=== PATIENT | female | born 1940 | race Caucasian/White ===

== ENCOUNTER 2018-03-11 17:52 | Inpatient (IN) ==
[2018-03-11] MEDS ORDERED: ALBUTEROL NEB SOLN 5 MG/ML 20 ML/BOTTLE CONT NEB STA (19:14)
[2018-03-11] MEDS ORDERED: MEROPENEM 1,000 MG in SODIUM CHLORIDE 0.9% 100 ML IV STA ×2 (19:14→19:43)
[2018-03-11] MEDS ORDERED: methylPREDNISolone SOD SUC 125 MG/2 ML VIAL IV STA (19:14)
[2018-03-11] MEDS ORDERED: SODIUM CHLORIDE 0.9% 500 ML IV STA (19:14)
[2018-03-11] MEDS ORDERED: ONDANSETRON 4 MG/2 ML VIAL IV STA (19:17)
[2018-03-11 19:49] LABS: Basophils % 1.6 % (0.0-0.8); Hematocrit 20.2 VOL% (35.7-47.0); Hemoglobin 6.7 GM/DL (12.0-16.0); Immature Granulocytes % 1.6 %; Immature Granulocytes Absolute 0.01 #; Lymphocytes # 0.4 10*3/uL (1.4-4.0); Lymphocytes % 65.6 % (21.3-54.2); Mean Corpuscular HGB Conc 33.2 GM/DL (32-36); Mean Corpuscular Hemoglobin 34 PG (27-34); Mean Corpuscular Volume 103.6 FL (87-102); Mean Platelet Volume 11.9 FL (9.6-12.0); Monocytes # 0.1 10*3/uL (0.11-0.8); Monocytes % 15.6 % (1.7-12.7); Neutrophils # 0.1 10*3/uL (1.4-7.4); Neutrophils % 15.6 % (38.7-73.9); Red Blood Count 1.95 MC/CUMM (3.8-5.5); Red Cell Distribution Width 14.4 % (9.3-17.3)
[2018-03-11 19:52] LABS: Platelet Count 29 T/CUMM (130-400); White Blood Count 0.6 T/CUMM (4-12)
[2018-03-11 19:57] LABS: PT Patient Result 10.2 SECS; Partial Thromboplastin Time 26.4 SECS (0-40)
[2018-03-11 20:12] LABS: Alanine Aminotransferase 12 U/L (13-56); Alkaline Phosphatase 101 U/L (45-117); Aspartate Amino Transferase 11 U/L (0-37); Blood Urea Nitrogen 16 MG/DL (7-18); Calcium 9.1 MG/DL (8.5-10.1); Glucose 113 MG/DL (74-106); Osmolality,Calculated 267.4 MOS/KG (273-304); Potassium 4.2 MMOL/L (3.5-5.1); Sodium 133 MMOL/L (136-145); Total Protein 6.1 G/DL (6.4-8.3); Troponin I < 0.015 NG/ML (0.00-0.045)
[2018-03-11 20:15] LABS: Anisocytosis Slight; Eosinophils 1 % (0-10); Hypochromasia 1+; Lymphocytes 72 % (20-55); Segmented Neutrophils 13 % (50-85); Total Cells Counted 100
[2018-03-11 20:16] LABS: Platelet Estimate Decreased; Polychromasia Few; Reactive Lymphocytes Few; Schistocytes Few
[2018-03-11] MEDS ORDERED: traMADol 50 MG TABLET PO STA (20:28)
[2018-03-11 20:30] LABS: Apearance,Urine CLEAR (Clear); Bilirubin,Urine Negative (Negative); Blood, Urine Negative (Negative); Glucose,Urine (UA) Negative (Negative); Ketones,Urine Negative (Negative); Nitrite,Urine Negative (Negative); Protein,Urine >=500 MG/DL; RBC,Urine 1 /HPF (0-4); Squamous Epithelial Cell,Urine Occasional /HPF (0-10); Urine Color Yellow (Yellow); Urine Specific Gravity 1.012 (1.001-1.035); Urine Urobilinogen < 2.0 EU/DL (0.2-1.0); WBC,Urine 2 /HPF (0-6)
[2018-03-11] MEDS ORDERED: ONDANSETRON 4 MG/2 ML VIAL IV PRN (21:17)
[2018-03-11] MEDS ORDERED: ACETAMINOPHEN 325 MG TABLET PO PRN (21:17)
[2018-03-11] MEDS ORDERED: SODIUM CHLORIDE 0.9% 1,000 ML IV PRN (21:17)
[2018-03-11] MEDS ORDERED: SODIUM CHLORIDE 0.9% 1,000 ML IV ONE (21:17)
[2018-03-11] MEDS ORDERED: PROMETHAZINE 25 MG/1 ML VIAL IM PRN (21:17)
[2018-03-11] MEDS ORDERED: diphenhydrAMINE CAP 25 MG CAPSULE PO PRN (21:17)
[2018-03-11] MEDS ORDERED: NICOTINE 21 MG/24 HR PATCH TRANSDERM PRN (21:17)
[2018-03-11] MEDS ORDERED: traZODone 50 MG TABLET PO PRN (21:17)
[2018-03-11] MEDS ORDERED: MORPHINE 4 MG/1 ML VIAL IV PRN (21:17)
[2018-03-11] MEDS: SODIUM CHLORIDE 0.9% 1,000 ML IV SCH (23:40)
[2018-03-11] MEDS: VANCOMYCIN INJ 1,000 MG in SODIUM CHLORIDE 0.9% 250 ML IV SCH (23:41)
[2018-03-12] MEDS: PIPERACILLIN/TAZOBACTAM 3,375 MG in SODIUM CHLORIDE 0.9% 100 ML IV SCH ×2 (01:13→11:41)
[2018-03-12] MEDS: methylPREDNISolone SOD SUC 125 MG/2 ML VIAL IV SCH ×3 (03:25→20:36)
[2018-03-12 04:32] LABS: Calcium 8.3 MG/DL (8.5-10.1); Potassium 4.2 MMOL/L (3.5-5.1)
[2018-03-12 07:13] LABS: Hematocrit 18.4 VOL% (35.7-47.0); Lymphocytes # 0.4 10*3/uL (1.4-4.0); Lymphocytes % 79.6 % (21.3-54.2); Mean Corpuscular HGB Conc 33.7 GM/DL (32-36); Mean Corpuscular Hemoglobin 35 PG (27-34); Mean Platelet Volume 14.6 FL (9.6-12.0); Monocytes % 3.7 % (1.7-12.7); Neutrophils # 0.1 10*3/uL (1.4-7.4); Neutrophils % 16.7 % (38.7-73.9); Red Blood Count 1.77 MC/CUMM (3.8-5.5); Red Cell Distribution Width 14.2 % (9.3-17.3)
[2018-03-12 07:19] LABS: Hemoglobin 6.2 GM/DL (12.0-16.0); Platelet Count 24 T/CUMM (130-400); White Blood Count 0.5 T/CUMM (4-12)
[2018-03-12 07:33] LABS: Lymphocytes 80 % (20-55); Segmented Neutrophils 20 % (50-85); Total Cells Counted 100
[2018-03-12 07:36] LABS: Macrocytosis Slight; Ovalocytes Few; Platelet Estimate Decreased
[2018-03-12] MEDS ORDERED: FLUTICASONE INH SCH (09:00)
[2018-03-12] MEDS ORDERED: VILANTEROL INH SCH (09:00)
[2018-03-12] MEDS ORDERED: TIOTROPIUM BROMIDE INH SCH (09:00)
[2018-03-12] MEDS: POTASSIUM CHLORIDE 20 MEQ TABLET PO SCH ×2 (09:57→20:36)
[2018-03-12] MEDS: PANTOPRAZOLE 40 MG TABLET PO SCH (09:57)
[2018-03-12] MEDS: amLODIPine 10 MG TABLET PO SCH (09:57)
[2018-03-12] MEDS: ALPRAZolam 0.5 MG TABLET PO PRN ×2 (10:05→20:42)
[2018-03-12] MEDS ORDERED: SODIUM CHLORIDE 0.9% 1,000 ML IV PRN (11:55)
[2018-03-12] MEDS: VANCOMYCIN INJ 1,000 MG in SODIUM CHLORIDE 0.9% 250 ML IV SCH ×2 (12:08→22:34)
[2018-03-12] MEDS: MEROPENEM 1,000 MG in SODIUM CHLORIDE 0.9% 100 ML IV SCH ×2 (12:17→20:39)
[2018-03-12] MEDS: FILGRASTIM-SNDZ 300 MCG/0.5 ML SYRINGE SUBCUT SCH (12:17)
[2018-03-13 03:15] LABS: Basophils % 0.8 % (0.0-0.8); Hemoglobin 9.4 GM/DL (12.0-16.0); Immature Granulocytes % 11.5 %; Immature Granulocytes Absolute 0.15 #; Lymphocytes # 0.6 10*3/uL (1.4-4.0); Lymphocytes % 44.6 % (21.3-54.2); Mean Corpuscular HGB Conc 33.6 GM/DL (32-36); Mean Corpuscular Hemoglobin 31 PG (27-34); Mean Corpuscular Volume 93.6 FL (87-102); Mean Platelet Volume 11.6 FL (9.6-12.0); Monocytes # 0.3 10*3/uL (0.11-0.8); Monocytes % 26.2 % (1.7-12.7); Neutrophils # 0.2 10*3/uL (1.4-7.4); Neutrophils % 16.9 % (38.7-73.9); Red Blood Count 2.99 MC/CUMM (3.8-5.5); Red Cell Distribution Width 16.1 % (9.3-17.3)
[2018-03-13 03:21] LABS: Platelet Count 63 T/CUMM (130-400)
[2018-03-13 03:22] LABS: White Blood Count 1.3 T/CUMM (4-12)
[2018-03-13 03:31] LABS: Albumin 2.6 G/DL (3.4-5.0); Bilirubin,Total 0.4 MG/DL (0.2-1.0); Calcium 8.6 MG/DL (8.5-10.1); Osmolality,Calculated 276.8 MOS/KG (273-304); Total Protein 5.7 G/DL (6.4-8.3)
[2018-03-13] MEDS: methylPREDNISolone SOD SUC 125 MG/2 ML VIAL IV SCH ×3 (03:31→19:38)
[2018-03-13] MEDS: MEROPENEM 1,000 MG in SODIUM CHLORIDE 0.9% 100 ML IV SCH ×3 (03:33→21:38)
[2018-03-13 03:51] LABS: Band Neutrophils 4 % (0-10); Lymphocytes 54 % (20-55); Segmented Neutrophils 26 % (50-85)
[2018-03-13 03:52] LABS: Ovalocytes 1+; Platelet Estimate Decreased; Polychromasia Few; Reactive Lymphocytes Few; Total Cells Counted 100
[2018-03-13] MEDS ORDERED: ALBUTEROL/IPRATROPIUM 3 ML NEB RESP TX PRN (08:46)
[2018-03-13] MEDS: amLODIPine 10 MG TABLET PO SCH (09:56)
[2018-03-13] MEDS: PANTOPRAZOLE 40 MG TABLET PO SCH (09:56)
[2018-03-13] MEDS: POTASSIUM CHLORIDE 20 MEQ TABLET PO SCH ×2 (09:56→20:45)
[2018-03-13] MEDS: FILGRASTIM-SNDZ 300 MCG/0.5 ML SYRINGE SUBCUT SCH (09:56)
[2018-03-13] MEDS: ALPRAZolam 0.5 MG TABLET PO PRN ×2 (11:20→20:44)
[2018-03-13] MEDS: VANCOMYCIN INJ 1,000 MG in SODIUM CHLORIDE 0.9% 250 ML IV SCH ×2 (12:02→23:10)
[2018-03-13] MEDS: traMADol 50 MG TABLET PO PRN (12:02)
[2018-03-14] MEDS: methylPREDNISolone SOD SUC 125 MG/2 ML VIAL IV SCH ×3 (03:57→20:47)
[2018-03-14] MEDS: MEROPENEM 1,000 MG in SODIUM CHLORIDE 0.9% 100 ML IV SCH ×3 (04:02→20:52)
[2018-03-14] MEDS: traMADol 50 MG TABLET PO PRN ×2 (04:06→20:45)
[2018-03-14 05:06] LABS: Basophils % 0.3 % (0.0-0.8); Hematocrit 29.4 VOL% (35.7-47.0); Hemoglobin 9.9 GM/DL (12.0-16.0); Immature Granulocytes % 1.4 %; Immature Granulocytes Absolute 0.08 #; Lymphocytes # 1.3 10*3/uL (1.4-4.0); Mean Corpuscular HGB Conc 33.7 GM/DL (32-36); Mean Corpuscular Hemoglobin 32 PG (27-34); Mean Corpuscular Volume 95.8 FL (87-102); Monocytes # 1.2 10*3/uL (0.11-0.8); NRBC # 0.02 10*3/uL; Neutrophils # 3.2 10*3/uL (1.4-7.4); Neutrophils % 56.3 % (38.7-73.9); Platelet Count 70 T/CUMM (130-400); Red Blood Count 3.07 MC/CUMM (3.8-5.5); Red Cell Distribution Width 16.9 % (9.3-17.3); White Blood Count 5.7 T/CUMM (4-12)
[2018-03-14 05:25] LABS: Albumin 2.6 G/DL (3.4-5.0); Bilirubin,Total 0.6 MG/DL (0.2-1.0); Osmolality,Calculated 276.8 MOS/KG (273-304); Total Protein 5.7 G/DL (6.4-8.3)
[2018-03-14 05:31] LABS: Band Neutrophils 4 % (0-10); Hypochromasia 1+; Lymphocytes 31 % (20-55); Ovalocytes Slight; Platelet Estimate Decreased; Segmented Neutrophils 46 % (50-85); Total Cells Counted 100
[2018-03-14] MEDS: amLODIPine 10 MG TABLET PO SCH (05:59)
[2018-03-14] MEDS: POTASSIUM CHLORIDE 20 MEQ TABLET PO SCH ×2 (08:55→20:45)
[2018-03-14] MEDS: PANTOPRAZOLE 40 MG TABLET PO SCH (08:55)
[2018-03-14] MEDS: FILGRASTIM-SNDZ 300 MCG/0.5 ML SYRINGE SUBCUT SCH (08:56)
[2018-03-14] MEDS: VANCOMYCIN INJ 1,000 MG in SODIUM CHLORIDE 0.9% 250 ML IV SCH ×2 (10:43→23:38)
[2018-03-14] MEDS: SODIUM CHLORIDE 0.9% 1,000 ML IV SCH (13:42)
[2018-03-15] MEDS: methylPREDNISolone SOD SUC 125 MG/2 ML VIAL IV SCH ×2 (03:52→12:51)
[2018-03-15] MEDS: MEROPENEM 1,000 MG in SODIUM CHLORIDE 0.9% 100 ML IV SCH (03:56)
[2018-03-15 05:16] LABS: Basophils # 0.2 10*3/uL (0.0-0.2); Basophils % 0.8 % (0.0-0.8); Hematocrit 31.6 VOL% (35.7-47.0); Hemoglobin 10.6 GM/DL (12.0-16.0); Immature Granulocytes % 6.5 %; Immature Granulocytes Absolute 1.59 #; Lymphocytes # 3.3 10*3/uL (1.4-4.0); Lymphocytes % 13.4 % (21.3-54.2); Mean Corpuscular HGB Conc 33.5 GM/DL (32-36); Mean Corpuscular Hemoglobin 31 PG (27-34); Mean Corpuscular Volume 93.5 FL (87-102); Mean Platelet Volume 11.6 FL (9.6-12.0); Monocytes # 2.8 10*3/uL (0.11-0.8); Monocytes % 11.4 % (1.7-12.7); NRBC # 0.08 10*3/uL; Neutrophils # 16.7 10*3/uL (1.4-7.4); Neutrophils % 67.9 % (38.7-73.9); Platelet Count 69 T/CUMM (130-400); Red Blood Count 3.38 MC/CUMM (3.8-5.5); Red Cell Distribution Width 16.7 % (9.3-17.3)
[2018-03-15 05:24] LABS: White Blood Count 24.6 T/CUMM (4-12)
[2018-03-15 05:37] LABS: Albumin 2.7 G/DL (3.4-5.0); Bilirubin,Total 0.7 MG/DL (0.2-1.0); Potassium 3.6 MMOL/L (3.5-5.1); Total Protein 5.5 G/DL (6.4-8.3)
[2018-03-15 05:47] LABS: Band Neutrophils 2 % (0-10); Lymphocytes 13 % (20-55); Metamyelocytes 1 %; Platelet Estimate Decreased; Polychromasia Few; Segmented Neutrophils 71 % (50-85); Total Cells Counted 100
[2018-03-15] MEDS: PANTOPRAZOLE 40 MG TABLET PO SCH (09:15)
[2018-03-15] MEDS: amLODIPine 10 MG TABLET PO SCH (09:15)
[2018-03-15] MEDS: POTASSIUM CHLORIDE 20 MEQ TABLET PO SCH (09:15)
[2018-03-15] MEDS: FILGRASTIM-SNDZ 300 MCG/0.5 ML SYRINGE SUBCUT SCH (09:17)
[2018-03-15] MEDS: traMADol 50 MG TABLET PO PRN (09:46)
[2018-03-15 12:47] VITALS: BP 172/76
== END 2018-03-15 12:25 | disposition home health service (06) | DRG 190 ==
LOC: N.ED 17:52 → SUATTDRO 21:17 → N.EDINP 21:17 → N.4E 22:06
PROVIDERS: ADMIT Hospitalist; ATTEND Internal Medicine

== ENCOUNTER 2018-12-21 22:11 | Inpatient (IN) ==
[2018-12-22] MEDS ORDERED: DOCUSATE SODIUM 100 MG CAPSULE PO PRN (01:48)
[2018-12-22] MEDS ORDERED: ONDANSETRON 4 MG/2 ML VIAL IV PRN (01:48)
[2018-12-22] MEDS ORDERED: hydrALAZINE 20 MG/1 ML VIAL IV PRN (02:23)
[2018-12-22] MEDS: methylPREDNISolone SOD SUC 40 MG/1 ML VIAL IV SCH ×3 (02:30→18:18)
[2018-12-22] MEDS: LEVOFLOXACIN INJ 500 MG in PREMIX 1 EACH IV SCH (02:32)
[2018-12-22] MEDS: ACETAMINOPHEN 325 MG TABLET PO PRN ×2 (04:20→16:45)
[2018-12-22 06:28] LABS: Basophils % 0.2 % (0.0-0.8); Hematocrit 25.9 VOL% (35.7-47.0); Hemoglobin 8.4 GM/DL (12.0-16.0); Immature Granulocytes % 0.4 %; Immature Granulocytes Absolute 0.02 #; Lymphocytes # 0.1 10*3/uL (1.4-4.0); Lymphocytes % 2.5 % (21.3-54.2); Mean Corpuscular HGB Conc 32.4 GM/DL (32-36); Mean Corpuscular Volume 99.2 FL (87-102); Mean Platelet Volume 12.8 FL (9.6-12.0); Monocytes % 2.7 % (1.7-12.7); Neutrophils % 94.2 % (38.7-73.9); Platelet Count 92 T/CUMM (130-400); Red Blood Count 2.61 MC/CUMM (3.8-5.5); Red Cell Distribution Width 14.9 % (9.3-17.3); White Blood Count 5.6 T/CUMM (4-12)
[2018-12-22 06:53] LABS: Hypochromasia 1+; Ovalocytes Slight; Platelet Estimate Decreased; Segmented Neutrophils 98 % (50-85); Total Cells Counted 100
[2018-12-22 07:02] LABS: Calcium 8.8 MG/DL (8.5-10.1); Osmolality,Calculated 275.1 MOS/KG (273-304); Risk Ratio 2.67; Thyroid Stimulating Hormone 2.98 uIU/ml (0.358-3.74)
[2018-12-22] MEDS: LEVALBUTEROL 1.25 MG/3 ML NEB RESP TX SCH ×3 (07:13→19:25)
[2018-12-22] MEDS: PANTOPRAZOLE 40 MG TABLET PO SCH (09:08)
[2018-12-22] MEDS ORDERED: traMADol 50 MG TABLET PO PRN ×2 (09:30→09:46)
[2018-12-22] MEDS: ALPRAZolam 0.5 MG TABLET PO PRN ×2 (09:42→18:28)
[2018-12-22] MEDS ORDERED: ONDANSETRON 4 MG TABLET PO PRN (09:46)
[2018-12-22] MEDS ORDERED: ALPRAZolam 0.5 MG TABLET PO PRN (09:46)
[2018-12-22] MEDS ORDERED: MAGNESIUM SULF RIDER 2 GM in PREMIX 1 EACH IV ONE (09:56)
[2018-12-22] MEDS: amLODIPine 10 MG TABLET PO SCH (10:34)
[2018-12-22] MEDS: POTASSIUM CHLORIDE 20 MEQ TABLET PO SCH ×2 (10:34→21:18)
[2018-12-22] MEDS: MELATONIN 3 MG TABLET PO SCH (21:18)
[2018-12-22] MEDS: ESCITALOPRAM 10 MG TABLET PO SCH (21:18)
[2018-12-23] MEDS: LEVALBUTEROL 1.25 MG/3 ML NEB RESP TX SCH ×4 (01:40→19:30)
[2018-12-23] MEDS: MELATONIN 3 MG TABLET PO SCH ×2 (02:10→20:37)
[2018-12-23] MEDS: LEVOFLOXACIN INJ 500 MG in PREMIX 1 EACH IV SCH (03:38)
[2018-12-23] MEDS: methylPREDNISolone SOD SUC 40 MG/1 ML VIAL IV SCH ×2 (03:39→09:57)
[2018-12-23 06:47] LABS: Eosinophils % 0.9 % (0.00-10.9); Hematocrit 28.1 VOL% (35.7-47.0); Hemoglobin 8.8 GM/DL (12.0-16.0); Immature Granulocytes % 0.6 %; Immature Granulocytes Absolute 0.03 #; Lymphocytes # 0.3 10*3/uL (1.4-4.0); Lymphocytes % 5.6 % (21.3-54.2); Mean Corpuscular HGB Conc 31.3 GM/DL (32-36); Mean Corpuscular Volume 101.1 FL (87-102); Mean Platelet Volume 12.5 FL (9.6-12.0); Monocytes % 7.3 % (1.7-12.7); Neutrophils % 85.6 % (38.7-73.9); Platelet Count 106 T/CUMM (130-400); Red Blood Count 2.78 MC/CUMM (3.8-5.5); Red Cell Distribution Width 15.1 % (9.3-17.3); White Blood Count 4.7 T/CUMM (4-12)
[2018-12-23 07:20] LABS: Alanine Aminotransferase 30 U/L (13-56); Albumin 3.1 G/DL (3.4-5.0); Alkaline Phosphatase 84 U/L (45-117); Aspartate Amino Transferase 21 U/L (0-37); Bilirubin,Total < 0.39 MG/DL (0.2-1.0); Blood Urea Nitrogen 25 MG/DL (7-18); Calcium 9.1 MG/DL (8.5-10.1); Glucose 106 MG/DL (74-106); Osmolality,Calculated 271.2 MOS/KG (273-304)
[2018-12-23] MEDS: POTASSIUM CHLORIDE 20 MEQ TABLET PO SCH ×2 (09:57→20:37)
[2018-12-23] MEDS: amLODIPine 10 MG TABLET PO SCH (09:58)
[2018-12-23] MEDS: PANTOPRAZOLE 40 MG TABLET PO SCH (09:59)
[2018-12-23] MEDS: predniSONE 20 MG TABLET PO SCH (13:22)
[2018-12-23] MEDS: ESCITALOPRAM 10 MG TABLET PO SCH (20:37)
[2018-12-24] MEDS: LEVALBUTEROL 1.25 MG/3 ML NEB RESP TX SCH ×4 (02:08→19:22)
[2018-12-24 05:38] LABS: Eosinophils % 0.2 % (0.00-10.9); Hematocrit 25.9 VOL% (35.7-47.0); Hemoglobin 8.3 GM/DL (12.0-16.0); Immature Granulocytes % 0.7 %; Immature Granulocytes Absolute 0.04 #; Lymphocytes # 0.4 10*3/uL (1.4-4.0); Lymphocytes % 7.2 % (21.3-54.2); Mean Corpuscular Volume 100.4 FL (87-102); Mean Platelet Volume 12.6 FL (9.6-12.0); Monocytes % 11.6 % (1.7-12.7); Neutrophils % 80.3 % (38.7-73.9); Platelet Count 108 T/CUMM (130-400); Red Blood Count 2.58 MC/CUMM (3.8-5.5); Red Cell Distribution Width 14.8 % (9.3-17.3); White Blood Count 5.5 T/CUMM (4-12)
[2018-12-24 06:05] LABS: Calcium 9.3 MG/DL (8.5-10.1); Osmolality,Calculated 281.7 MOS/KG (273-304)
[2018-12-24 06:11] LABS: Alanine Aminotransferase 34 U/L (13-56); Albumin 2.9 G/DL (3.4-5.0); Alkaline Phosphatase 79 U/L (45-117); Aspartate Amino Transferase 21 U/L (0-37); Bilirubin,Total < 0.39 MG/DL (0.2-1.0); Blood Urea Nitrogen 28 MG/DL (7-18); Calcium 9.2 MG/DL (8.5-10.1); Glucose 107 MG/DL (74-106); Total Protein 5.4 G/DL (6.4-8.3)
[2018-12-24] MEDS: predniSONE 20 MG TABLET PO SCH (08:09)
[2018-12-24] MEDS: POTASSIUM CHLORIDE 20 MEQ TABLET PO SCH ×2 (08:09→21:55)
[2018-12-24] MEDS: LEVOFLOXACIN 500 MG TABLET PO SCH (08:10)
[2018-12-24] MEDS: PANTOPRAZOLE 40 MG TABLET PO SCH (08:10)
[2018-12-24] MEDS ORDERED: FLUTICASONE FUROATE VILANTEROL INH SCH (09:00)
[2018-12-24] MEDS ORDERED: predniSONE 20 MG TABLET PO SCH (09:44)
[2018-12-24] MEDS ORDERED: NON-FORMULARY MEDICATION (Fluticasone Furoate-Vilanterol [Breo Ellipta] 1 PUFFS) INH SCH (13:00)
[2018-12-24] MEDS: ESCITALOPRAM 10 MG TABLET PO SCH (21:55)
[2018-12-24] MEDS: MELATONIN 3 MG TABLET PO SCH (21:55)
[2018-12-25] MEDS: LEVALBUTEROL 1.25 MG/3 ML NEB RESP TX SCH ×3 (01:34→13:39)
[2018-12-25] MEDS: ALPRAZolam 0.5 MG TABLET PO PRN (01:44)
[2018-12-25 05:29] VITALS: BP 162/88
[2018-12-25 06:22] LABS: Basophils % 0.2 % (0.0-0.8); Hematocrit 26.5 VOL% (35.7-47.0); Hemoglobin 8.4 GM/DL (12.0-16.0); Immature Granulocytes Absolute 0.04 #; Lymphocytes # 0.6 10*3/uL (1.4-4.0); Lymphocytes % 13.5 % (21.3-54.2); Mean Corpuscular HGB Conc 31.7 GM/DL (32-36); Mean Platelet Volume 11.9 FL (9.6-12.0); Monocytes % 15.9 % (1.7-12.7); Neutrophils % 68.4 % (38.7-73.9); Platelet Count 111 T/CUMM (130-400); Red Blood Count 2.65 MC/CUMM (3.8-5.5); Red Cell Distribution Width 14.9 % (9.3-17.3); White Blood Count 4.2 T/CUMM (4-12)
[2018-12-25 06:50] LABS: Hypochromasia 1+; Lymphocytes 12 % (20-55); Ovalocytes Slight; Platelet Estimate Decreased; Segmented Neutrophils 74 % (50-85); Total Cells Counted 100
[2018-12-25 07:05] LABS: Calcium 9.1 MG/DL (8.5-10.1); Osmolality,Calculated 269.2 MOS/KG (273-304)
[2018-12-25 07:08] LABS: Alanine Aminotransferase 30 U/L (13-56); Albumin 2.8 G/DL (3.4-5.0); Alkaline Phosphatase 70 U/L (45-117); Aspartate Amino Transferase 17 U/L (0-37); Bilirubin,Total < 0.39 MG/DL (0.2-1.0); Blood Urea Nitrogen 21 MG/DL (7-18); Calcium 8.9 MG/DL (8.5-10.1); Glucose 80 MG/DL (74-106); Osmolality,Calculated 269.2 MOS/KG (273-304); Total Protein 5.2 G/DL (6.4-8.3)
[2018-12-25] MEDS: POTASSIUM CHLORIDE 20 MEQ TABLET PO SCH (09:10)
[2018-12-25] MEDS: LEVOFLOXACIN 500 MG TABLET PO SCH (09:10)
[2018-12-25] MEDS: hydrALAZINE 25 MG TABLET PO SCH ×2 (09:10→16:00)
[2018-12-25] MEDS ORDERED: ESCITALOPRAM 10 MG TABLET PO SCH (09:12)
[2018-12-25] MEDS: PANTOPRAZOLE 40 MG TABLET PO SCH (09:40)
[2018-12-25] MEDS: ACETAMINOPHEN 325 MG TABLET PO PRN (10:52)
== END 2018-12-25 18:15 | disposition home health service (06) | DRG 191 ==
LOC: N.ICU 22:32 → SUATTDRO 12-22 00:19
PROVIDERS: ADMIT Internal Medicine Nephrology; ATTEND Family Medicine